=== PATIENT | male | born 1975 | race African-American/Black ===

== ENCOUNTER 2022-01-05 17:25 | Emergency (ER) | payer MEDICAID ==
[~2022-01-05] VITALS: Ht 182.9 cm; Wt 79.4 kg
[2022-01-05] MEDS ORDERED: FAMOTIDINE (10MG/ML) 2ML VL IV ONE (17:45)
[2022-01-05] MEDS ORDERED: diphenhdrAMINE HCL 50 MG/1 ML VL IV ONE (17:45)
[2022-01-05] MEDS ORDERED: methylPREDNISolone SOD SUCC 125 MG/2 ML VL IV ONE (17:45)
[2022-01-05] MEDS ORDERED: SODIUM CHLORIDE 0.9% 1,000 ML IV ONE (17:45)
[2022-01-05 18:15] LABS: Basophils # (auto) 0 10 ^3/uL (0-0.2); Eosinophils # (auto) 0.3 10 ^3/uL (0-0.8); Lymphocytes # (auto) 2.6 10 ^3/uL (0.4-5.4); Red Cell Distribution Width 13.6 % (11.8-14.3)
[2022-01-05 18:17] LABS: Basophils % (auto) 0.6 % (0.0-2.0); Eosinophils % (auto) 5.3 % (0.0-7.0); Hemoglobin 15.6 g/dL (13.5-17.5); Lymphocytes % (auto) 47.7 % (10.0-50.0); Mean Corpuscular Hemoglobin 25.7 pg (28.0-32.0); Mean Corpuscular Hgb Conc. 33.1 g/dL (32.0-36.0); Mean Corpuscular Volume 77.8 fL (80.0-100.0); Monocytes # (auto) 0.4 10 ^3/uL (0-1.3); Monocytes % (auto) 7.6 % (0.0-12.0); Neutrophils # (auto) 2.1 10 ^3/uL (1.6-8.6); Neutrophils % (auto) 38.8 % (37.0-80.0); Nucleated Red Blood Cells % 0.1 %; Red Blood Cells 6.05 10^6/uL (4.5-5.90); White Blood Cell 5.4 10^3/uL (4.4-10.8)
[2022-01-05 18:33] LABS: Albumin 3.6 g/dL (3.4-5.0); BUN/Creatinine Ratio 15.5; Calcium 8.5 mg/dL (8.5-10.1); Potassium 3.7 mmol/L (3.5-5.1)
[2022-01-05 18:36] LABS: Bilirubin, Total 0.4 mg/dL (0.2-1.0); Total Protein 7.1 g/dL (6.4-8.2)
[2022-01-05 19:30] VITALS: BP 125/99
[2022-01-05] MEDS ORDERED: DIPH25CA66 PO (19:34)
[2022-01-05] MEDS ORDERED: METH4PAK PO (19:34)
== END 2022-01-05 21:08 | disposition home or self-care (01) ==
LOC: ER 17:25
DX: T78.40XA Allergy, unspecified, initial encounter (principal); Z79.899 Other long term (current) drug therapy; Y92.89 Other specified places as the place of occurrence of the external cause
CPT/HCPCS: 36415; 80053; 85025; 96361; 96374; 96375; 99284; J1200; J2930; J3490; J7030